=== PATIENT | male | born 1950 | race Caucasian/White ===

== ENCOUNTER 2016-11-24 18:07 | Emergency (ER) | payer OTHER ==
[~2016-11-24] VITALS: Ht 177.8 cm; Wt 99.8 kg
--- NOTE | ~2016-11-24 | EKG ---
[address] [address] ELECTROCARDIOGRAM REPORT Name: COLLEEN TELLESSHAYY Room #: DEP [id number] Admission: 11/24/16 Attend Phys: Discharge: 11/24/16 Date of : 50 Report #: [id number] THIS REPORT FOR: //name// [facility] ED Test Date: 2016-11-24 Test Time: 18:42:36 Pat Name: COLLEEN TELLES Department: Room: Gender: M Knowledge Manager: helena keller : 1950 Requested By: Aby Murphy Order Number: [id number] MD: Cam Vieira Measurements Intervals [place] Rate: 65 P: 48 MT: 157 QRS: 85 QRSD: 140 T: 57 QT: 468 QTc: 487 Interpretive Statements Sinus rhythm Right bundle branch block Compared to ECG 06/16/2016 14:04:56 No significant changes Electronically Signed On 11-25-2016 22:27:29 CDT by Cam Vieira [email or web address] <ELECTRONICALLY SIGNED> By: Cam Vieira MD 11/25/16 2227 [id number] 41 Cam Vieira MD /LANE
[~2016-11-24 18:07] MED LIST: ACETAMINOPHEN325 M1 PO; ADVAIR HFA 230M12 GM INH; AMBIEN 10 MG TA10 MG PO; AMBIEN 5 MG TABL5 M1 PO; AMBIEN 5 MG TABL5 MG PO; ASPIRIN81 M2 PO; BAZA PROTECT CR57 GM TOP; CARDIZEM CD120 MG PO; COLACE 100 MG100 MG PO; COMPAZINE10 MG PO; DETROL LA4 MG PO; FLOMAX0.4 MG PO; HYDROXYZINE HCL25 M2 PO; IBUPROFEN 400400 M1 PO; KEPPRA 500 MG500 M1 PO; KEPPRA 500 MG500 M2 PO; KLOR-CON 1010 MEQ PO; LAMISIL AT15 GM TP; LASIX 40 MG TAB40 M2 PO; LEVAQUIN 500 M500 M1 PO; LISINOPRIL20 MG PO; LISINOPRIL5 MG PO; LYRICA 50 MG50 MG PO; METHADONE HCL5 MG PO; MUCINEX TA600 MG/TA2 PO; NATURAL BALANCE15 M1 OP; NEURONTIN 400400 M1 PO; NICOTINE TRANSDE7 MG TRANSDERM; PREDNISONE 10 M10 M1 PO; RISPERDAL0.25 MG PO; SENNA PO; SENNA8.6 MG PO; SYMBICORT160 MCG/4. INH; SYMBICORT160 MCG/4. PO; THERA-M CAPLET1 EACH PO; TOPAMAX25 M1 PO; TOPAMAX50 MG PO; VENTOLIN HFA 1818 GM INH; ZOCOR 10 MG TAB10 MG PO
[2016-11-24] MEDS ORDERED: URECHOLINE 10 M10 M1 PO (18:37)
[2016-11-24] MEDS ORDERED: AZELASTINE HCL6 ML OP (18:37)
[2016-11-24] MEDS ORDERED: NYAMYC15 GM TOP (18:38)
[2016-11-24 18:39] LABS: BASOPHILS 1.2 % (0.0-2.0); EOSINOPHILS 5.9 % (0.0-3.0); HEMATOCRIT 38.2 % (42.0-52.0); HEMOGLOBIN 12.7 gm/dL (14.0-18.0); LYMPHOCYTES 36.4 % (24.0-44.0); MCH 29.7 pg (26.0-34.0); MCHC 33.3 g/dL (28.0-37.0); MCV 89.2 fL (80.0-100.0); MONOCYTES 6.5 % (1.0-8.0); PLATELET COUNT 198 thou/uL (150-400); RBC 4.28 mil/uL (4.50-6.00); RDW 15.7 % (10.5-14.5); WBC 5.9 thou/uL (4.0-11.0)
[2016-11-24 18:41] LABS: MANUAL DIFF NO
[2016-11-24 18:53] LABS: ANION GAP 10 mmol/L (7-16); BUN 15 mg/dL (7-18); CALCIUM 8.8 mg/dL (8.5-10.1); CHLORIDE 108 mmol/L (98-107); CO2 21 mmol/L (21-32); CREATININE 1.3 mg/dL (0.7-1.3); SODIUM 139 mmol/L (136-145)
[2016-11-24 19:00] LABS: GLUCOSE 146 mg/dL (74-106)
[2016-11-24 19:11] LABS: ALKALINE PHOSPHATASE 66 U/L (46-116); SGOT 12 U/L (15-37); TOTAL BILIRUBIN 0.3 mg/dL (<0.1-1.0)
[2016-11-24 19:12] LABS: ALBUMIN 3.5 g/dL (3.4-5.0); NT-PRO BRAIN NAT PEPTIDE 242 pg/mL (<300); SGPT 21 U/L (30-65); TOTAL PROTEIN 7.2 g/dL (6.4-8.2); TROPONIN-I < 0.04 ng/mL (<0.04-0.07)
[2016-11-24 19:29] LABS: URINE BILIRUBIN NEGATIVE (Negative); URINE BLOOD NEGATIVE (Negative); URINE COLOR YELLOW; URINE GLUCOSE-RANDOM* NEGATIVE (Negative); URINE KETONES NEGATIVE (Negative); URINE NITRITE NEGATIVE (Negative); URINE PROTEIN (DIPSTICK) NEGATIVE (Negative); URINE SPECIFIC GRAVITY 1.025 (1.003-1.035)
== END 2016-11-24 20:17 ==
LOC: ER 18:07
PROVIDERS: Nurse Practitioner Family
DX: R60.9 Edema, unspecified (principal); I10 Essential (primary) hypertension; E78.5 Hyperlipidemia, unspecified; F19.10 Other psychoactive substance abuse, uncomplicated; F17.210 Nicotine dependence, cigarettes, uncomplicated; Z86.73 Personal history of transient ischemic attack (TIA), and cerebral infarction without residual deficits

== ENCOUNTER → 2017-02-04 | Outpatient (CLI) | payer OTHER ==
[~2017-02-04] MED LIST changes: +AZELASTINE HCL6 ML OP; +NYAMYC15 GM TOP; +URECHOLINE 10 M10 M1 PO
[2017-02-04 11:42] LABS: CREATININE 1.3 mg/dL (0.7-1.3)
== END ==
LOC: CAT 10:33
PROVIDERS: Internal Medicine
DX: R22.9 Localized swelling, mass and lump, unspecified (principal)

== ENCOUNTER → 2017-05-08 | Outpatient (CLI) | payer OTHER | LOC: CAT 09:37 → LABMALL 11:50 | DX: D49.0 Neoplasm of unspecified behavior of digestive system (principal) ==

== ENCOUNTER 2018-06-16 13:07 | Emergency (ER) | payer OTHER ==
[~2018-06-16] VITALS: Ht 177.8 cm; Wt 111.1 kg
[2018-06-16 15:38] VITALS: BP 125/75
== END 2018-06-16 15:39 | disposition home or self-care (01) ==
LOC: ER 13:07
DX: K62.6 Ulcer of anus and rectum (principal); F17.210 Nicotine dependence, cigarettes, uncomplicated; I10 Essential (primary) hypertension; E78.5 Hyperlipidemia, unspecified; Z86.73 Personal history of transient ischemic attack (TIA), and cerebral infarction without residual deficits

== ENCOUNTER 2018-10-28 14:38 | Inpatient (IN) | payer OTHER ==
[~2018-10-28] VITALS: Ht 177.8 cm; Wt 103.6 kg
[2018-10-28 15:49] LABS: ANION GAP 9 mmol/L (7-16); BUN 16 mg/dL (7-18); CHLORIDE 105 mmol/L (98-107); CO2 21 mmol/L (21-32); CREATININE 1.3 mg/dL (0.7-1.3); GLUCOSE 142 mg/dL (74-106); SODIUM 135 mmol/L (136-145)
[2018-10-28 15:56] LABS: ALBUMIN 3.4 g/dL (3.4-5.0); SALICYLATE < 2.8 mg/dL (2.8-20.0); SGOT 30 U/L (15-37); SGPT 22 U/L (30-65); TOTAL BILIRUBIN 0.4 mg/dL (<0.1-1.0); TOTAL PROTEIN 7.4 g/dL (6.4-8.2)
[2018-10-28 16:15] LABS: ABSOLUTE NEUTROPHILS 3.3 thou/uL (1.4-8.2); BASOPHILS 1.2 % (0.0-2.0); EOSINOPHILS 7.9 % (0.0-3.0); HEMATOCRIT 37.2 % (42.0-52.0); HEMOGLOBIN 12.5 gm/dL (14.0-18.0); LYMPHOCYTES 29.4 % (24.0-44.0); MCHC 33.5 g/dL (28.0-37.0); MCV 95.3 fL (80.0-100.0); MONOCYTES 8.9 % (1.0-8.0); PLATELET COUNT 183 thou/uL (150-400); POLYS 52.6 % (36.0-66.0); RBC 3.91 mil/uL (4.50-6.00); RDW 17.1 % (10.5-14.5); WBC 6.2 thou/uL (4.0-11.0)
[2018-10-28 16:58] LABS: URINE BILIRUBIN NEGATIVE (Negative); URINE BLOOD NEGATIVE (Negative); URINE CLARITY CLEAR; URINE COLOR YELLOW; URINE GLUCOSE-RANDOM* NEGATIVE (Negative); URINE KETONES NEGATIVE (Negative); URINE LEUKOCYTES-REFLEX NEGATIVE (Negative); URINE NITRITE-REFLEX NEGATIVE (Negative); URINE PROTEIN (DIPSTICK) NEGATIVE (Negative); URINE UROBILINOGEN 0.2 E.U./dl (0.2-1.0)
--- NOTE | 2018-10-28 17:04 | EKG ---
[place] [place] [address] ELECTROCARDIOGRAM REPORT Name: COLLEEN TELLESSHAYY Room #: 525- ADM IN M.R.#: [id number] ������������������ Admission: 10/28/18 ������������������ Attend Phys: Blaze George DO Discharge: ������������������ Date of : 50 Report #: [id number] ����������������������������������������������������������������� [id number] THIS REPORT FOR: //name// [facility] ED Test Date: 2018-10-28 Test Time: 14:56:47 Pat Name: COLLEEN TELLES Department: Room: [facility] Gender: M Mica Paster: BEATRIZ : 1950 Requested By: Jigar Sheridan Order Number: [id number] MD: Ravinder Beltran Measurements Intervals [employer] Rate: 63 P: 3 MI: 52 QRS: 84 QRSD: 154 T: 40 QT: 437 QTc: 448 Interpretive Statements Sinus rhythm Short MI interval Right bundle branch block Compared to ECG 11/24/2016 18:42:36 No significant change was found Electronically Signed On 10-28-2018 17:04:01 CDT by Ravinder Beltran [email or web address] ��������������������������������������������� <ELECTRONICALLY SIGNED> ���������������������������������������� By: Ravinder Beltran MD, [facility] ��������������������������������������������� 10/28/18 1704 1456 145 Ravinder Beltran MD, [facility] /EPI
[2018-10-28 17:06] LABS: AMP/METHAMP Negative (Negative); BARBITURATES Negative (Negative); BENZODIAZEPINES Negative (Negative); COCAINE Negative (Negative); METHADONE POSITIVE (Negative); OPIATES Negative (Negative); PCP Negative (Negative)
[2018-10-28 17:34] VITALS: BP 108/49
--- NOTE | 2018-10-28 18:35 | NUR ---
PT ARRIVED VIA CART FROM ER. VS OBTAINED.
[2018-10-28] MEDS ORDERED: DEMADEX20 MG PO (18:58)
[2018-10-28] MEDS ORDERED: ORADENT 0.1% DEN5 G1 (19:02)
[2018-10-28] MEDS ORDERED: ASPIR 8181 MG PO (19:19)
[2018-10-28] MEDS ORDERED: ALBUTEROL2.5 MG/31 INH (19:22)
[2018-10-28] MEDS ORDERED: ALPHAGAN P5 ML OPHTHALMIC (19:24)
[2018-10-28] MEDS ORDERED: FOLIC ACID1 MG PO (19:25)
[2018-10-28] MEDS ORDERED: HYDROXYZINE HCL25 M2 PO (19:29)
[2018-10-28] MEDS ORDERED: MOBIC15 MG PO (19:30)
[2018-10-28] MEDS ORDERED: GLUCOPHAGE XR750 MG PO (19:32)
[2018-10-28] MEDS ORDERED: METHOTREXATE 22.5 MG PO (19:34)
[2018-10-28] MEDS ORDERED: ZAROXOLYN 5MG TA5 MG PO (19:39)
[2018-10-28] MEDS ORDERED: CENTRUM SILVER1 EAC4 PO (19:41)
[2018-10-28] MEDS ORDERED: LOVAZA1000 MG PO (19:43)
[2018-10-28] MEDS ORDERED: LYRICA 50 MG50 MG PO (19:48)
[2018-10-28 21:12] VITALS: BP 134/53
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
--- NOTE | 2018-10-28 21:42 | NUR ---
Hospitalist and regional sales coordinator notified regarding r eye infection. fabric worker supervisor brought contact precaution cart. Pt had ice cream for snack, denied having dinner. Pt currently sleeping.
--- NOTE | 2018-10-28 21:47 | NUR ---
Pts family notified through phone call from ED regarding meal and visitation times.
--- NOTE | 2018-10-29 02:17 | NUR ---
Pt asleep throughout the night, Hospitalist visited but pt asleep, will return in am. Implemented contact precautions for eye infection.
[2018-10-29 12:17] VITALS: BP 134/53
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
--- NOTE | 2018-10-29 14:48 | NUR ---
ASSUMED CARE AT 0715 TODAY. PT. DRESSED AND UP ON THE UNIT. HE HAS BEEN QUIET AND INTERACTING ONLY WHEN APPROACHED BY STAFF. SKIN ASSESSMENT COMPLETED. NO SORES, BRUISES, TATOOS, LESIONS, SKIN BREAK DOWN NOTED EXCEPT 2 AREAS OF STRAIGHT LINE SCABS TO EITHER SIDE OF THE BACK OF HIS RIGHT KNEE. HE STATED IT WAS SORES FROM HIS LEG BRACE. HE IS NOT CURRENTLY WEARING THE BRACE. CREAM APPLIED TO THE AREA ORDERED. HE ATE ON THE UNIT, DID NOT ATTEND AM GROUP BUT DID ATTEND PM GROUP. HE POOPED ALL OVER HIS BATHROOM STOOL AND FLOOR WITH BROWN LOOSE WATERY STOOL. HIS CLOTHES ALSO HAD BM ON THEM. HE WAS GIVEN A SHOWER AND CLEAN CLOTHES PUT ON HIM. HIS MOTHER (WHO IS POA) CAME AND BROUGHT A SUITCASE WITH CLOTHING IN IT. NYSTATIN CREAM ORDERED FOR SCROTUM, BUT NO BREAKDOWN TO THAT AREA NOTED. HIS BLOOD SUGAR TODAY WAS 109. HE RECEIVES ORAL MEDICATION FOR HIS DIABETES AND IS DIET CONTROLLED. THE GLOVE TO HIS LEFT HAND (A COMPRESSION GLOVE) WAS CHANGED. HIS FINGERS ON HIS LEFT HAND ARE SWANED SHAPED.
[2018-10-29 15:17] VITALS: BP 139/66
[2018-10-29 19:29] VITALS: BP 134/68
[2018-10-29 23:00] VITALS: BP 134/68
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
--- NOTE | 2018-10-30 02:01 | NUR ---
ASSUMED CARE @ 21:30. VS 134/68 99 18 97.6f 99 % ON RA. HRRR, S1S2 NOTED. LUNGS CTA, ABD NORMOACTIVE. DENIES SI AND HI. STATES THAT IS SAD. CREAM APPLIED TO BACK OF R LEG. INCONTINENT OF BLADDER, IN BED. CHANGED BRIEF AND CHANGED INTO PIJAMA PANTS. WILL CONTINUE TO MONITOR.
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
[2018-10-30 09:00] VITALS: BP 109/61
[2018-10-30 09:07] VITALS: BP 135/85
[2018-10-30 09:08] VITALS: BP 109/61
[2018-10-30 20:21] VITALS: BP 109/61
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
--- NOTE | 2018-10-31 04:36 | NUR ---
PULSE NOTED TO BE 120 AT 2030 LAST PM VIA MACHINE-RECHECKED MANUALLY AT 0030 AND IS 94 APICAL-NOTED TO HAVE RECEIVED BREATHING TX PRIOR TO PM VS.
[2018-10-31 21:10] VITALS: BP 127/59
--- NOTE | 2018-11-01 02:28 | NUR ---
ASSUMED CARE @ 19:15, NOTED TO BE SITTING IN THE DAY ROOM WATCHING TV AND READING NEWSPAPAPER A&O X 4. DENIES SI, HI, AND ANXIETY.. STATES IS ONLY DEPRESSED ABOUT BEING HERE. STATES THAT GOAL IS TO GET OUT OF HERE. WHEN ASKED, DOES HE KNOW WHAT HE NEEDS TO WORK ON TO GET OUT OF HERE, HE STATED, "CALM MY TEMPER DOWN." WHEN ASKED ABOUT HIS DEPRESSION, HE RESPONDED THAT IT IS "GOING GOOD". TURNED IN @ 10:30 AND SLEPT WELL THROUGH OUT THE NOC, ( OF THIS WRITING.)
[2018-11-01 04:00] VITALS: BP 127/59
[2018-11-01 07:40] VITALS: BP 139/76
--- NOTE | 2018-11-01 10:43 | NUR ---
ASSUMED PATIENT CARE AT 0730. PATIENT UP AT D.R. TABLE. ATE WELL; DROWSY, FLAT AFFECT, CALM MOOD. COMPLIANT WITH A.M. MEDICATIONS, WHOLE WITH WATER. TAKES MEDS FROM MED CUP ALL AT ONE TIME. CONTINUE TO MONITOR.
[2018-11-01 12:03] VITALS: BP 139/76
[2018-11-01 19:34] VITALS: BP 135/78
--- NOTE | 2018-11-01 20:52 | NUR ---
Pt sitting in dining room watching TV eating snack, compliant with medications. Requested PRN ambien for sleep and will be given. BLE edema +3, L hand compression glove on intact. R eye sclera white, scant thick drainage on eye lashes, removed.
--- NOTE | 2018-11-01 21:46 | NUR ---
R knee crease scabbing area, nystatin applied lateral sides.
--- NOTE | 2018-11-01 21:48 | NUR ---
Pt stated he does not want to be awakened for MN cream or eye drops.
--- NOTE | 2018-11-02 04:05 | NUR ---
Pt slept all night.
[2018-11-02 11:30] VITALS: BP 136/76
[2018-11-02 11:38] VITALS: BP 136/76
--- NOTE | 2018-11-02 17:04 | NUR ---
ASSUMED CARE AT 0715 THIS MORNING. PT. UP ON THE UNIT SITTING IN THE BACK OF THE ROOM BY HIMSELF, NOT INTERACTING WITH ANYONE. WILL INTERACT WITH STAFF IF HE IS APPROACHED BUT WILL NOT INITIATE CONVERSATION ON HIS OWN. HE WAS UP FOR MEDS AND GROUPS. WORKED THE CROSSWORD PUZZLE IN HIS PAPER WITH RN. A&O X 4. NO ISSUES IDENTIFIED. DENIED HI/SI, AVH.
[2018-11-02 19:14] VITALS: BP 142/85
[2018-11-02 21:29] VITALS: BP 142/85
--- NOTE | 2018-11-03 04:24 | NUR ---
PT QUIET, GUARDED, AND ON THE EDGE OF THE GROUP THIS EVENING. DOZING PERIODICALLY. TOOK HS MEDS W/O PROBLEM. HAS DIFFICULTY WITH EYE DROPS, HE TENDS TO SQUEEZE EYES SHUT WHEN RN ATTEMPTS TO APPLY DROPS. SLEPT WELL THROUGH THE NIGHT.
--- NOTE | 2018-11-03 11:53 | NUR ---
ASSUMED PATIENT CARE AT 0700 A.M. PATIENT ATE 100% OF BREAKFAST. COM[PLIANT WITH ALL MEDICATIONS. FOCUSING ON PAIN MEDICATION. RECEIVED METHADONE 5 MG SCHEDULED; HYDROCODONE 5 MG 2 P.O. AT PRN, SEE MAR FOR EXACT TIME. DAUGHTERIN-LAW VISITING AT THIS TIME. ALSO MET WITH DOCTOR WITH PATIENT PRESENT PREVIOUSLY THIS A.M. AND AT THIS TIME. DISCUSSING PATIENT DPOA NEEDS AND PLACEMENT. COMPLIANT WITH ALL MEDICATIONS. CONTINUE TO MONITOR.
--- NOTE | 2018-11-03 12:32 | NUR ---
[facility] PATIENT CARE AT 0700. PATIENT UP IN D.R. IN W/C. ATE 100% OF BREAKFAST. MOTHER VISITED, MADE AWARE OF PATIENT'S DISCHARGE TODAY AT 1500. MOTHER WILL RETURN AT THAT TIME TO TRANSPORT HIM TO FACILITY. PATIENT CURENTLY EATING LUNCH. DISCHARGE WILL BE PRINTED WHEN AVAILABLE. PATIENT HAS HYPOACTIVE BOWEL SOUNDS; SENNA 8.65 MG ADMINISTERED AT APPROXIMATELY 1000 A.M. PATIENT TO HAVE A SHOWER AND SKIN ASSESSMENT PRIOR TO DISCHARGE,.
[2018-11-03] MEDS ORDERED: ALBUTEROL2.5 MG/31 INH (12:56)
[2018-11-03] MEDS ORDERED: TOPAMAX 100 MG100 MG PO (12:58)
[2018-11-03] MEDS ORDERED: SERTRALINE HCL50 MG PO (12:58)
[2018-11-03] MEDS ORDERED: PULMICORT0.5 MG/21 INH (12:59)
[2018-11-03] MEDS ORDERED: GLUCOPHAGE XR750 MG PO (13:00)
[2018-11-03 14:09] VITALS: BP 131/70
--- NOTE | 2018-11-03 15:01 | NUR ---
Patient Name: COLLEEN TELLES Admission Date: 10/28/18 DISCHARGE PLAN: Pt will be discharge to [facility]. Care Assessment: Pt was assessed by Dr. George. Pt was diagnosed with Mild Major neurocognitive disorder, and depression. Level II Assessment: None Transportation: Pt will be transported by his mother who is the DPOA. Special Instructions/Notes: Pt is severely depressed due to his health decline. DISCHARGE TO FACILITY[facility] Facility: [facility] Fax: Address: [address] [place] [address] Contact Name: Jac PCP: ERICA Psychiatrist: [facility] Facility Psychiatrist
--- NOTE | 2018-11-03 15:24 | NUR ---
PATIENT DISCHARGED TO PREVIOUS FACILITY, VIA HIS MOTHER. ASSISTED OUT TO CAR BY JOHN Rainey AT THIS TIME. ALL PAPERS AND BELONGINGS SENT WITH PATIENT AND HIS MOTHER.
--- NOTE | 2018-11-03 15:30 | NUR ---
NURSE CALLED REPORT TO SHUBHAM, ASSISTANT STATISTICIAN, AT [facility]. REPORTED ON NEW MEDICATIONS AND ALL OTHER MEDICATIONS. REPORTED R/T FUNGI TO THE OUTSIDE OF LEFT KNEE CAP, SENDING NYSTATIN WITH MOTHER TO RETURN TO FACILITY.
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
== END 2018-11-03 15:00 | DRG 884 ==
LOC: ER 14:38 → SBH 16:37
PROVIDERS: Emergency Medicine; ADMIT Psychiatry & Neurology Psychiatry
DX: F01.51 Vascular dementia, unspecified severity, with behavioral disturbance (principal); I69.354 Hemiplegia and hemiparesis following cerebral infarction affecting left non-dominant side; I10 Essential (primary) hypertension; E78.5 Hyperlipidemia, unspecified; G40.909 Epilepsy, unspecified, not intractable, without status epilepticus; E11.9 Type 2 diabetes mellitus without complications; M06.9 Rheumatoid arthritis, unspecified; K21.9 Gastro-esophageal reflux disease without esophagitis; N40.0 Benign prostatic hyperplasia without lower urinary tract symptoms; R21 Rash and other nonspecific skin eruption; F17.210 Nicotine dependence, cigarettes, uncomplicated; Z87.820 Personal history of traumatic brain injury; Z79.51 Long term (current) use of inhaled steroids; Z79.82 Long term (current) use of aspirin; Z79.84 Long term (current) use of oral hypoglycemic drugs; Z79.899 Other long term (current) drug therapy; Z88.8 Allergy status to other drugs, medicaments and biological substances
CPT/HCPCS: 10880

== ENCOUNTER → 2020-05-18 | Outpatient (CLI) | payer OTHER ==
[~2020-05-18] MED LIST changes: +ALBUTEROL2.5 MG/31 INH; +ALPHAGAN P5 ML OPHTHALMIC; +ASPIR 8181 MG PO; +CENTRUM SILVER1 EAC4 PO; +DEMADEX20 MG PO; +FOLIC ACID1 MG PO; +GLUCOPHAGE XR750 MG PO; +LOVAZA1000 MG PO; +METHOTREXATE 22.5 MG PO; +MOBIC15 MG PO; +ORADENT 0.1% DEN5 G1; +PULMICORT0.5 MG/21 INH; +SERTRALINE HCL50 MG PO; +TOPAMAX 100 MG100 MG PO; +ZAROXOLYN 5MG TA5 MG PO
== END ==
LOC: SJCVCIMAG 05-11 07:35
PROVIDERS: ATTEND Internal Medicine
DX: I65.23 Occlusion and stenosis of bilateral carotid arteries (principal); R94.31 Abnormal electrocardiogram [ECG] [EKG]; I45.10 Unspecified right bundle-branch block; I48.0 Paroxysmal atrial fibrillation; I10 Essential (primary) hypertension; I27.81 Cor pulmonale (chronic); E78.5 Hyperlipidemia, unspecified; E11.9 Type 2 diabetes mellitus without complications; Z79.899 Other long term (current) drug therapy; Z87.891 Personal history of nicotine dependence